=== PATIENT | female | born 2000 | race Caucasian/White ===

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

== ENCOUNTER 2021-09-07 06:06 | Emergency (ER) | payer OTHER ==
[2021-09-07 07:14] LABS: ALBUMIN 3.5 g/dL (3.4-5.0); BASOPHIL 0.2 % (0-2); BILIRUBIN - TOTAL 0.4 mg/dL (0.2-1.0); BUN/CREAT RATIO (CALC) 12.3 RATIO; CREATININE 0.65 mg/dL (0.51-0.95); EOSINOPHIL 0.2 % (0-5); GLOBULIN (CALCULATION) 3.8 g/dL; HGB 12.9 g/dl (12.5-16.0); MCH 28.4 pg (25.0-31.0); MCHC 32.3 g/dL (32.0-36.0); MCV 87.9 fL (78.0-100.0); MONOCYTE 6.9 % (0-12); MPV 11.1 fL (6.0-9.5); NEUTROPHIL 71.5 % (41-80); NRBC 0; PLT 196 K/uL (150-400); POTASSIUM 3.5 mmol/L (3.5-5.1); RBC 4.55 M/uL (4.20-5.40); RDW 13.7 % (11.5-14.0); TOTAL PROTEIN 7.3 g/dL (6.4-8.2); WBC 5.8 K/uL (4.0-10.5)
== END 2021-09-07 09:30 | disposition home or self-care (01) ==
LOC: FER 06:06
PROVIDERS: Internal Medicine
DX: U07.1 COVID-19 (principal)
CPT/HCPCS: 36415; 71045; 80053; 84145; 85025